=== PATIENT | male | born 1950 | race Caucasian/White ===

== ENCOUNTER 2021-04-19 10:15 | Inpatient (IN) | payer OTHER ==
[2021-04-19] VITALS (20 sets, daily range): BP systolic 114–155; BP diastolic 62–83
[~2021-04-19] VITALS: Ht 182.9 cm; Wt 108.9 kg
--- NOTE | 2021-04-19 10:27 | ER.PDOC ---
General Chief Complaint: Chest Pain-Cardiac Nature Stated Complaint: ELEVATED TROPONIN Time seen by MD: 10:17 Source: patient History of Present Illness Initial Comments This is a 70-year-old man with a known history of coronary artery disease who comes to the emergency department after a 1 week history of chest pain. He was with his at a doctor's office today and his chest pain worsened so they saw him in the emergency department at the [facility]. He had an elevated troponin at 312, and because the 2 hospitals in [place] are diverting, he was sent here. They had called Dr. Aparicio and discussed case with him. He gave me report about the patient. Currently, the patient came to the emergency department at approximately 10:00 this morning chest pain-free on a heparin drip feeling much better. He is here for admission to the hospital Dr. Mcdaniels had accepted the patient but the patient will need to be admitted to the hospitalist with Dr. Mcdaniels following. Severity/Quality: mild, moderate Radiation: no radiation Activities at Onset: none Prior CP/Workup: Cardiac Cath, Heart Attack Aspirin Today: 325 mg x 1 Associated Symptoms: denies symptoms Prior symptoms/Treatment: Similar symptoms previous Allergies: Coded Allergies: No Known Allergies (Unverified , 04/19/21) Physical Exam General Appearance: No Apparent Distress, WD/WN HEENT: PERRL/EOMI, Normal ENT Inspection, TMs Normal, Pharynx Normal Neck: Non-Tender, Full Range of Motion, Supple, Normal Inspection Respiratory: chest non-tender, lungs clear, normal breath sounds, no respiratory distress, no accessory muscle use Cardiovascular: Normal Peripheral Pulses, Regular Rate, Rhythm, No Edema, No Gallop, No JVD, No Murmur Gastrointestinal: Normal Bowel Sounds, No Organomegaly, No Pulsatile Mass, Non Tender, Soft Rectal: Normal Exam Extremities: Normal Range of Motion, Non-Tender, Normal Inspection, No Pedal Edema, No Calf Tenderness, Normal Capillary Refill Neurologic/Psychiatric: multicraft operator II-XII NML as Tested, No Motor/Sensory Deficits, Alert, Normal Mood/Affect, Oriented x 3 Skin: Normal Color, Warm/Dry Lymphatic: No Adenopathy Results/Orders Results/Orders Vital Signs Date Time Temp Pulse Resp B/P (MAP) Pulse Ox O2 Delivery O2 Flow Rate FiO2 04/19/21 10:17 98.4 70 20 99 Progress Progress I called and spoke with Dr. Esteban Portillo, the on-call hospitalist and discussed the case with him. Arrangements were made for the patient to be admitted to the ICU due to the fact the patient was on a heparin drip. I did notify Dr. Gutierrez that the patient was Covid positive. EKG/XRAY/CT/US EKG: NSR, rhythm, LBBB, unchanged from (Unchanged EKG from earlier today) ER DEPART Departure Time of Disposition: 10:46 Disposition: 09 ADMITTED INPATIENT Impression: Primary Impression: NSTEMI (non-ST elevated myocardial infarction) Condition: Stable Duration or Time Spent with Pa: Unknown SHERIDAN BENITEZ MD Apr 19, 2021 10:26
--- NOTE | 2021-04-19 11:35 | NUR ---
ON UNIT PATIENT TRANSPORTED ONTO UNIT VIA STRETCHER, ABLE TO TRANSFER SELF TO HOSPITAL BED. DENIES PAIN AT THIS TIME, NO ACUTE DISTRESS NOTED. RECEIVED REPORT FROM Diana POLK RN. ASSUMED CARE OF PATIENT.
--- NOTE | 2021-04-19 12:00 | PCM.EKG ---
[facility] Test Date: 2021-04-19 Test Time: 10:08:44 Pat Name: ZACHARY BEDOLLA Department: Room: ICU1 Gender: M Change Of Address Clerk: BL : [id number] Requested By: SHERIDAN LACY Order Number: [id number] Reading MD: Sheridan Lacy Measurements Intervals [place] Rate: 60 P: 69 MN: 184 QRS: -52 QRSD: 107 T: 31 QT: 439 QTc: 439 Interpretive Statements Sinus rhythm Left anterior fascicular block Borderline low voltage, extremity leads Abnormal R-wave progression, late transition No previous ECG available for comparison Electronically Signed On 04-23-2021 7:13:45 CDT by Sheridan Lacy Please click the below link to view image of tracing.
--- NOTE | 2021-04-19 12:02 | NUR ---
RT RT AT BEDSIDE PERFORMING ECHO.
--- NOTE | 2021-04-19 13:01 | NUR ---
DR. SHANTE FREY AT BEDSIDE.
--- NOTE | 2021-04-19 13:36 | PCM.ECHO ---
APPROVED REPORT EXAM: Comprehensive 2D, Doppler, and color-flow Echocardiogram. Patient Location: IN-PATIENT Indications NSTEMI 2D Dimensions LVOT Diameter 2.24 (1.8-2.4cm) LVEF(%) 42.89 (>50%) M-Mode Dimensions Left Atrium(MM) 3.60 (2.5-4.0cm) IVSd 0.95 (0.7-1.1cm) Aortic Root 2.95 (2.2-3.7cm) LVDd 5.70 (4.0-5.6cm) Aortic Cusp Exc 2.00 (1.5-2.0cm) PWd 1.15 (0.7-1.1cm) MV EPSS 0.58 (<0.5cm) IVSs 1.40 cm FS (%) 28.45 % LVDs 4.10 (2.0-3.8cm) ESV(Teich) 75.95 ml PWs 1.45 cm LVEF(%) 54.10 (>50%) Volumes Biplane 2D LV Volumes Biplane 2D LA Volumes LVEDv A4C 120.94 mL LA ESV Index LVESv A4C 69.45 mL Aortic Valve AoV Peak Javier. 1.00 m/s AoV VTI 20.85 cm AO Peak GR. 4.05 mmHg AO Mean GR. 2.55 mmHg LVOT VTI 19.81 cm LVOT Peak Javier. 0.82 m/s ALLA(VTI)/BSA 3.75 cm2/m2 ALLA (VTI) 3.75 cm2 Mitral Valve MV E Velocity 0.60m/s MR Peak Gr. 4.10mmHg MV A Velocity 0.90m/s MV Mean Gr. 0.75mmHg E/A Ratio 0.7 TDI Lateral E' P. V 0.07m/s Medial E' P. V 0.07m/s E/Lateral E' 8.6 E/Medial E' 8.6 E/Septal E 8.6 Pulmonary Valve PV Peak Velocity 0.60m/s PV Peak Grad. 1.45mmHg RVOT VTI 12.96cm Tricuspid Valve TR P. Velocity 1.30m/s RAP ESTIMATE 10.00mmHg TR Peak Gr. 7.23mmHg RVSP 17.23mmHg LEFT VENTRICLE The left ventricle is normal size. The left ventricular systolic function is normal. The left ventricular ejection fraction is within the normal range. There is normal left ventricular wall thickness. There is normal LV segmental wall motion. There is no ventricular septal defect visualized. No left ventricle thrombus noted on this study. LVEF is 50%. RIGHT VENTRICLE The right ventricle is normal size. The right ventricular systolic function is normal. There is normal right ventricular wall thickness. ATRIA The left atrium size is normal. The right atrium size is normal. The interatrial septum is intact with no evidence for an atrial septal defect. AORTIC VALVE The aortic valve is normal in structure. There is no aortic valvular stenosis. No aortic regurgitation is present. There is no aortic valvular vegetation. MITRAL VALVE The mitral valve is normal in structure. There is no mitral valve stenosis. Mild mitral regurgitation. There is no evidence of mitral valve vegetations. TRICUSPID VALVE The tricuspid valve is normal in structure. There is no tricuspid valve stenosis. Mild tricuspid regurgitation. There is no tricuspid valve vegetations. PULMONIC VALVE Pulmonic valve is not well visualized. There is no pulmonic valvular stenosis. There is no pulmonic valvular regurgitation. GREAT VESSELS The aortic root is normal in size. Pulmonary artery is not well visualized. Aortic arch is not well visualized. IVC is not well visualized. PERICARDIUM There is no pericardial effusion. There is no pleural effusion. Other Information Study Quality: Fair <Conclusion> The left ventricular systolic function is normal. LVEF is 50%. Mild mitral regurgitation. Mild tricuspid regurgitation. Electronically signed by : JENNIFER BLACK. 04/19/2021 13:35:39
[2021-04-19] MEDS ORDERED: ASPIRIN ONE (13:50)
[2021-04-19 13:55] LABS: BASOPHIL % 0.7 % (0.0-0.2); EOSINOPHIL # 0.3 10^3/uL (0.0-0.2); EOSINOPHIL % 5.4 % (0.0-5.0); LYMPHOCYTES # 1.84 10^3/uL1 (1.0-4.8); LYMPHOCYTES % 31.9 % (24.0-44.0); MEAN CORP HGB 31.9 pg (26-34); MONOCYTES # 0.8 10^3/uL (0.3-0.8); NEUTROPHIL # 2.8 10^3/uL (1.8-7.7); NEUTROPHILS % 48.5 % (41.0-85.0); PLATELET COUNT 231 10^3/uL (150-400); RED CELL DISTRIBUTION WIDTH 11.9 % (11.5-14.5)
[2021-04-19] MEDS ORDERED: PLAVIX PO SCH (14:00)
[2021-04-19] MEDS ORDERED: MYLANTA PO PRN (14:00)
[2021-04-19] MEDS ORDERED: ASPIRIN EC PO SCH (14:00)
[2021-04-19] MEDS ORDERED: REMDESIVIR (EUA) 100 MG in NS 100ML 100 ML IV SCH (14:00)
[2021-04-19] MEDS ORDERED: TYLENOL PO PRN (14:00)
--- NOTE | 2021-04-19 14:08 | NUR ---
MED CLARIFICATION DR. FREY CONTACTED TO VERIFY DOSE OF REMDESEVIR, RECEIVED ORDERS TO INITIATE LOADING DOSE. PHARMACY NOTIFIED.
--- NOTE | 2021-04-19 14:16 | PCM.HP ---
HISTORY AND PHYSICAL Date of Arrival on Unit: Apr 19, 2021 Chief Complaint Chest pain HPI Pt is a 70 year old male with pmhx of HTN, DMII with neuropathy, HLD, previous stent placements in 1999 who presented to the ED from the [place] today for chest pain. Pain began approximately 1 week ago and described as indigestion but was not relieved with rolaids. Pain radiated down both arms. [facility] with [facility] of pain. No associated SOB, nausea, vomiting, diaphoresis, light headedness. He was found to have an elevated troponin. The EK G did not have ST elevations. He was started on a heparin drip. Cardiology was consulted. The pt was also found to be positive for SARS-CoV in the ED. He denied cough, congestion, SOB, fever, chills, myalgias, loss of taste or smell. He has received his COVID-19 vaccination. Allergies Allergies Coded Allergies No Known Allergies ([id number]/1/21) Other Pt history DMII with neuropathy HTN CAD with x2 stents in 1999 HLD Social History Lives in [place], [place] with his . 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 Denied smoking cigarettes or illicit drug use. He drinks approximately 1 x 30 pack of beer per week. ROS CONSTITUTIONAL: Negative for fever, weight loss or night sweats. HEAD AND NECK: Negative for visual changes, hearing changes, hoarseness, or sore throat. CARDIOVASCULAR: Positive for chest pain Negative for palpitations, edema. RESPIRATORY: Negative for shortness of breath, cough. GASTROINTESTINAL: Negative for abdominal pain, nausea, vomiting, diarrhea, constipation. MUSCULOSKELETAL: Negative for back pain. Negative for extremity pain. NEUROLOGIC: Denies seizures, strokes, or headaches. PSYCHIATRIC: Denies anxiety or depression. DERMATOLOGIC: Negative for rash or lesions. VITALS Vital Signs Date Time Temp Pulse Resp B/P (MAP) Pulse Ox O2 Delivery O2 Flow Rate FiO2 04/19/21 11:52 67 18 114/79 (91) 98 Nasal Canula 2.00 04/19/21 11:20 98.4 EXAM GENERAL: The patient is well developed and nontoxic. HEENT: Nonicteric sclerae, PERRLA, EOMI. Oropharynx clear. Moist mucous membranes. CHEST: Chest wall nontender. Cardiovascular: Regular rate and rhythm. No murmurs, clicks, gallops, rubs. Diminished pretibial pulses bilaterally.No peripheral leg edema LUNGS: Clear to auscultation bilaterally with good air movement. No respiratory distress. ABDOMEN: Obese. Soft, positive bowel sounds, nontender, no organomegaly EXTREMITIES: No clubbing, cyanosis NEUROLOGIC: Cranial nerves II-XII intact without motor, sensory, or cerebellar deficit, no asterixis. SKIN: No rash. LAB/ATTILA/BBK/PATH Laboratory Tests Test 04/19/21 10:56 04/19/21 13:47 Troponin I High Sensitivity 3045 ng/L (4-75) White Blood Count 5.8 10^3/uL (4.5-11.0) Red Blood Count 4.96 10^6/uL (4.50-5.90) Hemoglobin 15.8 g/dL (13.9-16.3) Hematocrit 47.8 % (37.0-53.0) Mean Corpuscular Volume 96.4 fL (78-100) Mean Corpuscular Hemoglobin 31.9 pg (26-34) Mean Corpuscular Hemoglobin Concent 33.1 g/dL (33-36.5) Red Cell Distribution Width 11.9 % (11.5-14.5) Platelet Count 231 10^3/uL (150-400) Mean Platelet Volume 10.3 fL (7.8-11.0) Neutrophils (%) (Auto) 48.5 % (41.0-85.0) Lymphocytes (%) (Auto) 31.9 % (24.0-44.0) Monocytes (%) (Auto) 13.0 % (5.0-12.0) Neutrophils # (Auto) 2.8 10^3/uL (1.8-7.7) Lymphocytes # (Auto) 1.84 10^3/uL1 (1.0-4.8) Monocytes # (Auto) 0.8 10^3/uL (0.3-0.8) Absolute Immature Granulocyte (auto 0.03 10^3 u/L (0-2) Absolute Eosinophils (auto) 0.3 10^3/uL (0.0-0.2) Immature Granulocytes % 0.50 % (0.00-0.50) Eosinophils % 5.4 % (0.0-5.0) Basophils % 0.7 % (0.0-0.2) Basophils # 0.0 10^3/uL (0.0-0.1) IMAGING CXR: pending repeat here at [facility]. ECHO: The left ventricular systolic function is normal. LVEF is 50%. Mild mitral regurgitation. Mild tricuspid regurgitation. SUMMARY 70 year old male admitted for NSTEMI, cardiology consulted. ASSESSMENT/PLAN NSTEMI - on heparin drip, plavix, ASA, morphine, Nitro, oxygen in place. ECHO done at bedside today. Cardiology consulted. COVID-19 - at this time since the pt is doing well and has adequate saturations off of supplemental oxygen, will hold any corticosteroids but am starting remdesivir. Pending CXR. Monitor for changes. HTN - will hold Cozaar 50mg and Atenolol 50mg at this time, pending cardiology recommendations. DMII with neuropathy - Sliding scale at this time. Cont Jardiance 25mg qD. Hold Metformin 1000mg BID. Cymbalta 60mg for neuropathy. Holding gabapentin 600mg TID today. HLD - Holding pravastatin 40mg qD at this time pending cardiology recommendations incase they wish to change regimen. EtOH use - will need counselling prior to discharge. ALICE FREY MD Apr 19, 2021 14:16
--- NOTE | 2021-04-19 14:16 | NUR ---
RADIOLOGY RADIOLOGY AT BEDSIDE TO OBTAIN CHEST XRAY.
[2021-04-19 14:21] LABS: ABG PCO2 42.5 mmHg (35.0-45.0); ABG PH 7.409 (7.350-7.450); BE(B) 1.4 mmol/L (-2.0-2.0); HCO3act 26.3 mmol/L (22.0-26.0); pO2 86.5 mmHg (80.0-100.0)
[2021-04-19 14:25] LABS: CALCIUM 9.1 mg/dL (8.4-10.5); CARBON DIOXIDE 29.8 mmol/L (20.0-32)
[2021-04-19] MEDS ORDERED: REMDESIVIR (EUA) 200 MG in NS 100ML 100 ML IV SCH (14:30)
[2021-04-19] MEDS ORDERED: MORPHINE SULFATE IV PRN (14:30)
--- NOTE | 2021-04-19 14:50 | DIREP ---
PROCEDURE:CHEST 1 VIEW COMPARISON:None. INDICATIONS:elevated troponin FINDINGS: LUNGS/PLEURA:No significant pulmonary parenchymal abnormalities. No effusions. VASCULATURE:Normal. Unremarkable pulmonary vasculature. CARDIAC:Normal. No cardiac silhouette abnormality or cardiomegaly. MEDIASTINUM:Normal. No visible mass or adenopathy. BONES:Normal. No fracture or visible bony lesion. OTHER:Negative. CONCLUSION:No acute cardiopulmonary findings. Dictated by: Geo Phillips M.D. on 04/19/2021 at 02:48 PM
--- NOTE | 2021-04-19 14:57 | NUR ---
HX PATIENT REPORTS HAVING TESTED "POSITIVE" WHEN HE WAS YOUNGER, BUT NEVER ACTUALLY HAD ANY SYMPTOMS OF TUBERCULOSIS. Addendum: 04/19/21 at 1504 by COLBY Goldman RN Amended: Links added.
--- NOTE | 2021-04-19 16:40 | NUR ---
DR. SOFIA BLACK CALLED AND REPORTED HE WILL BE UP TO SEE PATIENT FOR EXPLANATION OF PROCEDURE. RECEIVED ORDERS TO REPEAT COVID TEST STAT AND PREP PATIENT FOR HEART CATH.
--- NOTE | 2021-04-19 16:45 | NUR ---
METAL FABRICATING SUPERVISOR SWAB NASOPHARYNGEAL SWAB OBTAINED PER MATT. SPECIMEN TAKEN TO LAB BY FABIAN CONNORS.
--- NOTE | 2021-04-19 16:55 | NUR ---
PREP BILAT GROIN PREPPED AT THIS TIME, CHG BATH PERFORMED AND GOWN CHANGED.
[2021-04-19] MEDS ORDERED: VERSED ONE (17:13)
[2021-04-19] MEDS ORDERED: XYLOCAINE ONE (17:13)
[2021-04-19] MEDS ORDERED: SUBLIMAZE ONE (17:13)
--- NOTE | 2021-04-19 17:15 | NUR ---
DR. SOFIA BLACK AT BEDSIDE TO EXPLAIN PROCEDURE.
--- NOTE | 2021-04-19 17:22 | NUR ---
CONSENT CONSENT OBTAINED AND SIGNED AT THIS TIME. EDUCATION PROVIDED REGARDING PROCEDURE, POSSIBLE S/E, AND USE OF BLOOD. PATIENT ABLE TO VERBALIZE UNDERSTANDING, QUESTIONS AND CONCERNS ANSWERED.
--- NOTE | 2021-04-19 17:28 | NUR ---
OFF UNIT PATIENT TRANSPORTED OFF UNIT VIA STRETCHER DOWN TO RUBBLE PLACER BY RUBBLE PLACER STAFF MEMBER. NO ACUTE DISTRESS NOTED.
[2021-04-19] MEDS: HUMULIN R SQ SCH ×2 (17:30→21:00)
[2021-04-19] MEDS ORDERED: NS 1000ML 1,000 ML ONE (17:33)
[2021-04-19] MEDS ORDERED: HEPARIN ONE (17:39)
--- NOTE | 2021-04-19 18:22 | NUR ---
COVID PCR COVID PCR POSITIVE. DR BLACK NOTIFIED
--- NOTE | 2021-04-19 18:35 | NUR ---
REPORT REPORT GIVEN AND CARE RELINQUISHED TO Golden KOCH RN.
--- NOTE | 2021-04-19 18:38 | NUR ---
ON UNIT PATIENT TRANSPORTED BACK ONTO UNIT VIA STRETCHER, x5 ASSIST FROM STRETCHER TO HOSPITAL BED. NO ACUTE DISTRESS NOTED, DENIES PAIN AT THIS TIME, VSS. RIGHT GROIN CATH SITE WITHOUT REDNESS, HEAT, EDEMA, DRESSING C/D/I.
--- NOTE | 2021-04-19 20:26 | CCRH ---
DATE OF SERVICE: 04/19/2021 DICTATOR NAME: JENNIFER BLACK DO CARDIAC CONSULTATION REPORT INDICATIONS: Acute non-ST elevation myocardial infarction. This is a 70-year-old male who was transferred from the [facility] following a presentation of acute non-ST elevation myocardial infarction. Upon presentation to the hospital, his high sensitive troponin I was noted to be over 3000. He was set up for left heart catheterization after informed consent were obtained, PROCEDURES PERFORMED: 1. Selective coronary angiography. 2. Left ventriculography. 3. Hemostasis established using a 6-Zimbabwean Angio-Seal. DESCRIPTION OF PROCEDURE: Access was obtained using a 6-Zimbabwean sheath to cannulate the right common femoral artery. Diagnostic angiography was then carried out using a Kate left catheter to engage the left main. There is a 40% distal heavily calcified lesion in the left main. The left main bifurcates into a left anterior descending artery and a left circumflex artery. The ostial to proximal LAD is noted to have a 95% heavily calcified lesion. The mid LAD has a chronically totally occluded lesion, which appears to be an in-stent restenotic lesion. The first diagonal branch that takes off from the proximal segment of the LAD is noted to be severely diseased in the proximal to mid segments. The left circumflex artery is noted to be codominant. There is a proximal 99% subtotal occlusion of the left circumflex artery, which appears to be a bifurcation lesion with the first obtuse marginal branch that has an ostial 99% lesion. The second obtuse marginal branch also has an ostial 95% lesion. The mid segment of the vessel has a 90% lesion. It continues as the left posterolateral branch. The Kate left catheter was then exchanged for a Kate right catheter, which was used to engage the RCA. RCA angiography showed a dominant RCA. The mid segment of the RCA is noted to have a 75% lesion. The RCA bifurcates distally to a right posterolateral artery and the right posterior descending artery. There is an ostial 90% lesion in the right posterior descending artery. The RPL is noted to have mild luminal irregularities. Right to left collateralization is visualized extending from the right posterior descending artery retrogradely filling the mid to distal LAD. The Kate right catheter was then exchanged for a pigtail catheter, which was used to cross the aortic valve into the left ventricle. Left ventriculography was performed. LVEF was noted to be 60%. LVEDP was noted to be 13. Upon pullback of the pigtail catheter, there was no gradient across the aortic valve. The pigtail catheter was then taken out and hemostasis was established using a 6-Zimbabwean Angio-Seal. The patient left the catholic priest in stable condition. There were no complications. IMPRESSION: 1. Multivessel coronary artery disease. 2. Selective coronary angiography. 3. Left ventriculography. 4. Left ventricular ejection fraction of 60%. 5. Left ventricular end-diastolic pressure of 13. 6. Hemostasis established using a 6-Zimbabwean Angio-Seal. RECOMMENDATIONS: The patient will be transferred to [facility] in [place], [place] for coronary artery bypass graft surgery. I have discussed the case extensively with Dr. Sal Puente, CT surgeon at [facility] in [place], [place]. He has agreed to accept the patient. He will be kept on heparin drip for now. Further recommendations will be made after the patient has been evaluated by CT surgeon. Harmony GARRIDO D.O. DR: ABILIO/SAHARA TID: [id number] RECEIPT: [id number]
--- NOTE | 2021-04-19 20:38 | NUR ---
Patient is in the process of getting transferred to another hospital.
--- NOTE | 2021-04-19 22:34 | CNH ---
DATE OF CONSULTATION: 04/19/2021 DICTATOR NAME: JENNIFER BLACK DO REASON FOR CONSULTATION: Acute non-ST elevation myocardial infarction. HISTORY OF PRESENT ILLNESS: This is a 70-year-old male who was transferred from the [facility] following a presentation of acute non-ST elevation myocardial infarction. The patient states that he has been experiencing symptoms of chest pain for the last 1 week that has progressively gotten worse. He describes tightness in his substernal region that appeared to be exertional in nature. Upon presentation to the outside hospital, he was noted to have spilled troponins and a diagnosis of acute non-ST elevation myocardial infarction was made. A consultation was placed to Cardiology service for evaluation after the patient was transferred over to [facility]. He is chest pain free at this time. He has a known history of CAD with PCI in the past, but cannot recall how many vessels were stented. He does admit to having gotten 2 stents at that time. This was 20 years ago. PAST MEDICAL HISTORY: 1. Known history of CAD, status post PCI x2 stents done 20 years ago. 2. Hypertension. 3. Hyperlipidemia. 4. Diabetes mellitus. PAST SURGICAL HISTORY: Cardiac catheterization 20 years ago with 2 stents placed. ALLERGIES: He has no known drug allergies. MEDICATIONS: He takes at home, see MAR. FAMILY HISTORY: He denies any family history of premature coronary artery disease or sudden cardiac . SOCIAL HISTORY: He denies tobacco use, denies illicit drug use, denies alcohol use. REVIEW OF SYSTEMS: As per HPI and as per previous records. All systems are reviewed and negative for interval change. PHYSICAL EXAMINATION: VITAL SIGNS: Blood pressure is 114/79, respiratory rate is 18, pulse is 67, pulse oximetry 98% on 2 liters. GENERAL: He is in no apparent distress, alert and oriented x3. HEENT: Normocephalic, atraumatic. Extraocular muscles intact. Pupils equally round, reactive to light and accommodation. CARDIAC: S1, S2. No gallops, murmurs, rubs, or clicks. LUNGS: Clear to auscultation bilaterally. No wheezing, rhonchi or rales. ABDOMEN: Soft, nontender, nondistended. Positive bowel sounds in all 4 quadrants. EXTREMITIES: No cyanosis, no clubbing, no edema, +2 pedal pulses palpable bilaterally. NEUROLOGIC: No neurological deficits. Sensation is intact. IMPRESSION: 1. Acute non-ST elevation myocardial infarction. 2. Known history of coronary artery disease, status post PCI x2 stents done 20 years ago -- unknown vessels intervened upon. 3. Left ventricular ejection fraction of 50% on 2D echo done this admission. 4. Diabetes mellitus. 5. Hypertension. 6. Hyperlipidemia. 7. Obesity. RECOMMENDATIONS: This is a 70-year-old male who initially presented at the [facility] with progressively worsening chest pain, was found to have an acute non-ST elevation myocardial infarction and was transferred over to [facility] for evaluation. He is currently on heparin drip as well as aspirin and Plavix. He will be taken to the cardiac catheterization suite today for urgent left heart catheterization. The risks versus benefits of the procedure have been explained to him in great detail. He verbalized understanding and is agreeable with the plan of care. Informed consents have been obtained. Of note, he tested positive to COVID-19 virus at the [facility]. He, however, does not have any symptoms and states that he has been fully vaccinated against the virus. Chest x-ray does not show any acute findings. COVID PCR test has been ordered at this time. Further recommendations will be made based on his overall clinical course and findings from left heart catheterization. Harmony GARRIDO D.O. DR: JESSE TIMonica: [phone] RECEIPT: [id number]
--- NOTE | 2021-04-19 22:37 | NUR ---
PT LEFT VIA EMS/AB IN STABLE CONDITION TO [facility] IN [facility] NOTIFIED OF PATIENTS DEPARTURE
[2021-04-20] MEDS ORDERED: CYMBALTA PO SCH (09:00)
[2021-04-20] MEDS ORDERED: ASPIRIN EC PO SCH (09:00)
[2021-04-20] MEDS ORDERED: JARDIANCE PO SCH (09:00)
[2021-04-20] MEDS ORDERED: REMDESIVIR (EUA) 100 MG in NS 100ML 100 ML IV SCH (15:00)
== END 2021-04-19 22:37 | disposition short-term general hospital (02) | DRG 280 ==
LOC: ER 10:15 → ICU 10:51
PROVIDERS: ADMIT Student in an Organized Health Care Education/Training Program; ATTEND Internal Medicine Interventional Cardiology
PROC: 4A023N7 Measurement of Cardiac Sampling and Pressure, Left Heart, Percutaneous Approach (ICD-10-PCS; 2021-04-19)
PROC: B2111ZZ Fluoroscopy of Multiple Coronary Arteries using Low Osmolar Contrast (ICD-10-PCS; 2021-04-19)
PROC: XW033E5 Introduction of Remdesivir Anti-infective into Peripheral Vein, Percutaneous Approach, New Technology Group 5 (ICD-10-PCS; 2021-04-19)
PROC: B2151ZZ Fluoroscopy of Left Heart using Low Osmolar Contrast (ICD-10-PCS; principal; 2021-04-19 17:00)
DX: I21.4 Non-ST elevation (NSTEMI) myocardial infarction (principal); U07.1 COVID-19; E66.9 Obesity, unspecified; E78.5 Hyperlipidemia, unspecified; I10 Essential (primary) hypertension; I25.10 Atherosclerotic heart disease of native coronary artery without angina pectoris; E11.40 Type 2 diabetes mellitus with diabetic neuropathy, unspecified; I25.2 Old myocardial infarction; Z79.84 Long term (current) use of oral hypoglycemic drugs; Z79.899 Other long term (current) drug therapy; Z95.5 Presence of coronary angioplasty implant and graft; Z72.89 Other problems related to lifestyle; Z68.32 Body mass index [BMI] 32.0-32.9, adult
CPT/HCPCS: 36415; 36600; 71045; 80053; 82104; 82803; 82948; 84484; 85025; 85610; 87633; 93005; 93306; 93458; 99152; 99153; 99285; C1760; C1894; G0378; J1644; J2250; J3010; J7030; Q9967; C1758; C1769